=== PATIENT | male | born 2000 | race Caucasian/White ===

== ENCOUNTER 2020-12-12 22:03 | Emergency (ER) | payer OTHER ==
[~2020-12-12] VITALS: Ht 175.3 cm; Wt 53.5 kg
[2020-12-12 22:13] VITALS: BP 155/87; Ht 175.3 cm; Wt 53.5 kg
[2020-12-12] MEDS ORDERED: ALERCAP25 MG PO (23:16)
[2020-12-12] MEDS ORDERED: DELTASONE20 MG PO (23:16)
== END 2020-12-12 23:32 | disposition home or self-care (01) ==
LOC: ED 22:03
DX: T78.1XXA Other adverse food reactions, not elsewhere classified, initial encounter (principal); Z91.018 Allergy to other foods; X58.XXXA Exposure to other specified factors, initial encounter
CPT/HCPCS: J7512; Q0163

== ENCOUNTER 2020-12-15 13:04 | Emergency (ER) | payer OTHER ==
[~2020-12-15] VITALS: Ht 175.3 cm; Wt 53.5 kg
[~2020-12-15 13:04] MED LIST: ALERCAP25 MG PO; DELTASONE20 MG PO
[2020-12-15 13:12] VITALS: BP 131/90; Ht 175.3 cm; Wt 53.5 kg
[2020-12-15] MEDS ORDERED: MORGIDOX 1X100100 MG PO (13:38)
[2020-12-15 14:12] LABS: microscopic required? YES; urine erythrocyte NEGATIVE (NEGATIVE)
== END 2020-12-15 14:05 | disposition home or self-care (01) ==
LOC: ED 13:04
PROVIDERS: Emergency Medicine
DX: A64 Unspecified sexually transmitted disease (principal); Z91.010 Allergy to peanuts
CPT/HCPCS: 87491; 87591; J0696